=== PATIENT | female | born 1975 | race Caucasian/White ===

== ENCOUNTER → 2020-07-15 | Outpatient (CLI) | payer BC ==
[~2020-07-15] MED LIST: NORCO 5-325 TA1 EACH PO; SYNTHROID100 MCG PO
== END ==
LOC: EMI 13:33
DX: R51.9 Headache, unspecified (principal); M54.9 Dorsalgia, unspecified; G62.9 Polyneuropathy, unspecified; Z53.8 Procedure and treatment not carried out for other reasons

== ENCOUNTER → 2020-08-10 | Outpatient (CLI) | payer BC | LOC: EMI 08-08 08:00 | DX: M54.2 Cervicalgia (principal); R51.9 Headache, unspecified; G62.9 Polyneuropathy, unspecified; M47.812 Spondylosis without myelopathy or radiculopathy, cervical region; M50.223 Other cervical disc displacement at C6-C7 level; M77.8 Other enthesopathies, not elsewhere classified | CPT/HCPCS: 70551; 72141 ==